=== PATIENT | male | born 1990 | race Two or more races ===

== ENCOUNTER 2023-03-10 22:46 | Emergency (ER) | payer SELFPAY ==
[~2023-03-10] VITALS: Ht 177.8 cm; Wt 81.8 kg
[2023-03-11] MEDS ORDERED: HALOPERIDOL LACTATE 5 MG/ML VIAL IM ONE (00:45)
[2023-03-11] MEDS ORDERED: DiphenhydrAMINE HCL 50 MG/ML VIAL IM ONE (00:45)
[2023-03-11 08:26] VITALS: BP 124/60
== END 2023-03-11 08:51 | disposition home or self-care (01) ==
LOC: EMS 22:46
DX: F10.129 Alcohol abuse with intoxication, unspecified (principal); F43.20 Adjustment disorder, unspecified; F12.90 Cannabis use, unspecified, uncomplicated; Z83.3 Family history of diabetes mellitus
CPT/HCPCS: 99284; 36415; 96372; G0480; J1200; J1630